=== PATIENT | female | born 1960 | race Caucasian/White ===

== ENCOUNTER 2017-12-12 07:13 | Emergency (ER) | payer BC ==
[2017-12-12 07:20] VITALS: RESP 16
--- NOTE | 2017-12-12 07:43 | EDPHY ---
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 vert art dissection 2011. sciatica - Social History Smoking Status: Never smoked Constitutional: Initial Vital Signs Temperature (C) 36.3 C 12/12/17 07:17 Heart Rate 80 12/12/17 07:17 Respiratory Rate 16 12/12/17 07:17 Blood Pressure 160/90 H 12/12/17 07:17 O2 Sat (%) 97 12/12/17 07:17 O2 Delivery Mode Room Air Allergies/Adverse Reactions: codeine [Codeine] Allergy (Mild, Verified 12/22/15 10:04) n/v Home Medications: Medication Instructions Recorded Losartan Potassium [Cozaar 25 mg 25 mg PO DAILY #30 tab 12/22/15 (*)] Medical Decision Making - Diagnostics Imaging Results: Imaging Impressions Extremity Venous Study 12/12/17 07:43 Impression: No deep venous thrombosis left leg. Findings and recommendations discussed with Emergency Department physician, Sly Zelaya MD at 8:20 hour, 12/12/2017. Final report concurs with initial preliminary interpretation. Lumbar Spine MRI 12/12/17 07:52 Impression: 1. L4-L5: Mild central canal stenosis, moderate bilateral lateral recess stenosis, and mild to moderate left neural foraminal stenosis secondary to moderate degenerative disk disease, and moderate to severe bilateral facet arthropathy. 2. L3-L4: Mild central canal stenosis, moderate left lateral recess stenosis, and mild bilateral neural foraminal stenosis secondary to degenerative grade 1 anterolisthesis, moderate to severe bilateral facet arthropathy, mild degenerative disk disease and mild disk bulge. 3. Please see above findings at specific disk levels. Findings and recommendations discussed with Emergency Department physician, Sly Zelaya MD at 0915 hours, 12/12/2017. Final report concurs with initial preliminary interpretation. Imaging: Discussed imaging studies w/ call center consultant Radiologist, I viewed and interpreted images myself ED Course/Re-evaluation: CHIEF COMPLAINT: Leg pain, concern for DVT HISTORY OF PRESENT ILLNESS: The patient is a 57 y/o female complaining of left lower leg pain onset 2 weeks ago that worsened acutely 2 days ago. 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 She has a history of sciatica, but this pain seems more localized in her calf rather than through her leg like prior episodes of sciatica. She does still have pain in her lumbar back and left gluteal region with pain that extends to the top of her foot. The pain has become severe in the last 2 days and she has been unable to sleep. She describes the pain as constant, throbbing, and "excruciating." Her pain She has been using ibuprofen "around the clock" with no alleviation. She is unable to find a comfortable position. No significant change in symptoms with leg raise. She denies fever or other symptoms. REVIEW OF SYSTEMS: A 10 point review of systems was performed and is negative with the exception of the elements mentioned in the history of present illness. PHYSICAL EXAM: HR, BP, O2 Sat, RR. Temp noted General Appearance: Alert, well hydrated, appropriate, and non-toxic appearing. Head: Atraumatic without scalp tenderness or obvious injury Eyes: Pupils equal, round, reactive to light and accommodation, EOMI, no trauma , no injection. Nose: Atraumatic, no rhinorrhea, clear. Throat: Mucus membranes moist. Neck: Supple, nontender, no lymphadenopathy. Respiratory: No retractions, no distress, no wheezes, and no accessory muscle use. Lungs are clear to auscultation bilaterally. Cardiovascular: Regular rate and rhythm, no murmurs, rubs, or gallops. Left dorsalis pedis pulse intact. Good capillary refill all extremities. Gastrointestinal: Abdomen is soft, nontender, non-distended, no masses, no rebound, no guarding, no peritoneal signs. Musculoskeletal: Normal active ROM of all extremities, atraumatic. Symmetrical lower leg appearance. Neurological: Alert, appropriate, and interactive. The patient has non-focal cranial nerves, motor, sensory, and cerebellar exam. Skin: No rashes, good turgor, no nodules on palpation. Past medical history: Sciatica, hypertension Past surgical history: Noncontributory Family history: Noncontributory Social history: Lives in [place]. Employed as flight operations manager on international flights for [employer] DIAGNOSTICS/PROCEDURES/CRITICAL CARE TIME: Left lower extremity US: negative for DVT Lumbar MRI: L4-L5 foraminal arthropathy causing nerve root compression DIFFERENTIAL DIAGNOSIS: The differential diagnosis for the patient's leg pain included but was not limited to lumbar radiculopathy, DVT, hypoalbuminemia, congestive heart failure, cor pulmonale, venous stasis, trauma. 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 She does have associated lumbar pain that radiates into her gluteal region. Unable to elicit pain on exam. No visible swelling or ecchymosis to lower left leg. Normal neurologic exam. Her description of her pain seems most consistent with nerve pain from a lumbar radiculopathy, but due to her history of frequent long travel and concern for DVT I've recommended an US to assess for DVT in addition to lumbar MRI to assess for possible herniation or other spinal issue. Pain management with 2 tabs PO oxycodone. 10mg PO Decadron administered. US is negative for DVT. MRI shows foraminal arthritis with nerve root compression at L4-L5 that is consistent with her symptoms. Dr. Monreal, interventional radiologist, is available for facet injections today. Discussed these results with the patient and she would like to proceed with injections. Last PO intake was coffee at 05:00. Will maintain PO status. Plan for IV and preop labs. Spoke with Dr. Monreal, IR. They will take patient directly to IR for facet injections now. - Data Points Medications Given: Discontinued Medications Dexamethasone (Decadron Injection) 10 mg PO EDNOW ONE Stop: 12/12/17 07:52 Last Admin: 12/12/17 08:36 Dose: 10 mg Oxycodone/Acetaminophen (Percocet 5/325) 2 tab PO EDNOW ONE Stop: 12/12/17 07:52 Last Admin: 12/12/17 08:36 Dose: 2 tab Departure - Departure Disposition: Home, Routine, Self-Care Clinical Impression: Lumbar nerve root compression, Left leg pain Condition: Good Instructions: Lumbar Radiculopathy (ED) Additional Instructions: 1. Follow up with Dr. Irizarry, back specialist, in the next week. I recommend calling today to schedule that appointment. 2. Return to the ED for severe pain, weakness or numbness in your leg, fever, or other worsening of condition. Referrals: Brennan John MD [Primary Care Provider] - As per Instructions Derek Irizarry MD [Medical Doctor] - As per Instructions Report Scribed for: Sly Zelaya Report Scribed by: Caitie Ramirez Date of Report: 12/12/17 Time of Report: 08:03
[2017-12-12] MEDS ORDERED: OXYCODONE/APAP 5/325 TAB PO ONE (07:51)
[2017-12-12] MEDS ORDERED: DEXAMETHASONE 10 MG/ML VIAL PO ONE (07:51)
[2017-12-12] MEDS ORDERED: LIDOCAINE 1% 300 MG/30 ML SDV ONE (11:05)
[2017-12-12] MEDS ORDERED: IOPAMIDOL (ISOVUE 370) 100 ML BTL IV ONE (11:05)
[2017-12-12] MEDS ORDERED: TRIAMCINOLONE ACETONIDE 40 MG/ML VIAL ONE (11:05)
[2017-12-12 12:24] VITALS: BP 125/84; PULSE 85; TEMP 98.4; O2SAT 98
== END 2017-12-12 12:23 | disposition home or self-care (01) ==
DX: M79.605 Pain in left leg (principal); M51.16 Intervertebral disc disorders with radiculopathy, lumbar region; I10 Essential (primary) hypertension
CPT/HCPCS: J1100; J3301; Q9967